=== PATIENT | male | born 2000 | race Caucasian/White ===

== ENCOUNTER 2021-04-03 15:15 | Emergency (ER) | payer MEDICAID ==
[2021-04-03 15:39] VITALS: BP 134/78; PULSE 72; O2SAT 98
--- NOTE | 2021-04-03 16:06 | ERPHSYRPT ---
- History of Present Illness Time Seen by Provider: 04/03/21 15:35 Source: patient Exam Limitations: no limitations Patient Subjective Stated Complaint: Pt has a "cyst" in his left arm just above and medial to his AC, it appeared approx 5 days ago and continues to get larger and it is causing pain Triage Nursing Assessment: Pt was brought to the ER by his girlfriend, alexander spaulding, rates pain as 6/10 in his left arm, "cyst" like mass inside his left medial arm, doesn't appear to be in any distress Physician History: Patient is a 20-year-old male presents to our emergency department for evaluation of a bulging mass on the medial aspect of his left upper arm. Symptoms started approximately 5 days ago. The mass is tender. No nidus of infection no fever. No numbness tingling or weakness of the upper extremity. Patient describes a dull ache that is well localized. No radiation. Patient otherwise asymptomatic. Pain rated 4 out of 10. Patient declined pain medication. Patient voices no other complaints at this time. Timing/Duration: day(s) (5 days ago.) Severity: moderate Modifying Factors: Improves With: medication Associated Symptoms: denies symptoms Allergies/Adverse Reactions: No Known Drug Allergies Allergy (Verified 04/03/21 15:38) Hx Tetanus, Diphtheria Vaccination/Date Given: Yes Hx Influenza Vaccination/Date Given: No Hx Pneumococcal Vaccination/Date Given: No Travel Risk - International Travel Have you traveled outside of the country in past 3 weeks: No - Coronavirus Screening Are you exhibiting any of the following symptoms?: No Close contact with a COVID-19 positive Pt in past 14-21 Days: No - Vaccine Status Have you recieved a Covid-19 vaccination: No - Review of Systems Constitutional: No Symptoms, No Fever, No Chills Eyes: No Symptoms Ears, Nose, & Throat: No Symptoms Respiratory: No Symptoms, No Cough, No Dyspnea Cardiac: No Symptoms, No Chest Pain, No Edema, No Syncope Abdominal/Gastrointestinal: No Symptoms, No Abdominal Pain, No Nausea, No Vomiting, No Diarrhea Genitourinary Symptoms: No Symptoms, No Dysuria Musculoskeletal: No Symptoms, No Back Pain, No Neck Pain Skin: No Symptoms, No Rash Neurological: No Symptoms, No Dizziness, No Focal Weakness, No Sensory Changes Psychological: No Symptoms Endocrine: No Symptoms Hematologic/Lymphatic: No Symptoms Immunological/Allergic: No Symptoms All Other Systems: Reviewed and Negative - Past Medical History Pertinent Past Medical History: No - Past Surgical History Past Surgical History: Yes - Social History Smoking Status: Current some day smoker Exposure to second hand smoke: Yes Drug Use: marijuana Patient Lives Alone: No - Nursing Vital Signs Nursing Vital Signs: Initial Vital Signs Temperature 99.3 F 04/03/21 15:31 Pulse Rate 72 04/03/21 15:31 Blood Pressure 134/78 04/03/21 15:31 O2 Sat by Pulse Oximetry 98 04/03/21 15:31 Pain Scale Pain Intensity 6 - Physical Exam General Appearance: no apparent distress, alert Eye Exam: PERRL/EOMI, eyes nml inspection Ears, Nose, Throat Exam: normal ENT inspection, TMs normal, pharynx normal, moist mucous membranes Neck Exam: normal inspection, non-tender, supple, full range of motion Respiratory Exam: normal breath sounds, lungs clear, No respiratory distress Cardiovascular Exam: regular rate/rhythm, normal heart sounds, normal peripheral pulses Gastrointestinal/Abdomen Exam: soft, normal bowel sounds, No tenderness, No mass Back Exam: normal inspection, normal range of motion, No CVA tenderness, No vertebral tenderness Extremity Exam: normal inspection, normal range of motion, pelvis stable, other (Mass medial aspect left upper extremity measures approximately 2 x 2 cm. It is tender to palpation. There is no lymphangitis. No circulatory compromise. Radial pulse palpable. Sensation to light touch intact.) Neurologic Exam: alert, oriented x 3, cooperative, normal mood/affect, nml cerebellar function, nml station & gait, sensation nml, No motor deficits Skin Exam: normal color, warm, dry, No rash Lymphatic Exam: adenopathy (Left upper extremity mass appears to be a lymph node.) SpO2 Interpretation: normal SpO2: 98 O2 Delivery: Room Air - Course Nursing assessment & vital signs reviewed: Yes - Radiology Ultrasound Exam Other Ultrasound: tele radiology report (1.8 x 1.6 x 1.5 cm well-circumscribed nodule with fatty echogenic hilum and color Doppler flow favoring enlarged lymph node. No other solid/cystic masses observed.) Ordered Tests: Active Orders 24 hr Category Date Time Status EXTREMITY NON VASCULAR [US] Stat Exams 04/03/21 15:55 Completed - Progress Progress: improved Progress Note: Dr. Salgado notified of findings. He advised scheduling appointment with general surgery. We will schedule an appointment with the [facility] for follow-up. Plan of care discussed with patient. He agrees to follow-up with general surgery as discussed. Will discharge patient at this time. [id number] pain medication as needed as needed. 04/03/21 16:38 04/03/21 16:40 Counseled pt/family regarding: diagnosis, need for follow-up, rad results - Departure Departure Disposition: Home Clinical Impression: Lymphadenopathy Condition: Stable Critical Care Time: No Referrals: KARLI MONTALVO [ACTIVE STAFF] - Additional Instructions: Discharge/Care Plan RADHA LANCE was seen on 04/03/21 in the Emergency Room. The patient was counseled regarding Diagnosis,Lab results, Imaging studies, need for follow up and when to return to the Emergency Room. Prescriptions given: Discharge Note I have spoken with the patient and/or caregivers. I have explained the patient's condition, diagnosis and treatment plan based on the information available to me at this time. I have answered the patient's and/or caregiver's questions and addressed any concerns. The patient and/or caregivers have as good understanding of the patient's diagnosis, condition and treatment plan as can be expected at this point. The vital signs have been stable. The patient's condition is stable and appropriate for discharge from the emergency department. The patient will pursue further outpatient evaluation with the primary care physician or other designated or consulting physician as outlined in the discharge instructions. The patient and/or caregivers are agreeable to this plan of care and follow-up instructions have been explained in detail. The patient and/or caregivers have received these instruction. The patient/and or caregivers are aware that any significant change in condition or worsening of symptoms should prompt an immediate return to this or the closest emergency department or call 911. Prescriptions: Clindamycin HCl 150 mg [Cleocin 150 mg Capsule] 2 cap PO QID 7 Days #56 capsule
--- NOTE | 2021-04-03 16:28 | XRAY ---
Indication: Left upper arm nodule. Two-dimensional targeted soft tissue ultrasound medial left upper arm demonstrates 1.8 x 1.6 x 1.5 cm well-circumscribed nodule with fatty echogenic hilum and color Doppler flow favoring enlarged lymph node. No other solid/cystic mass.
== END 2021-04-03 17:02 | disposition home or self-care (01) ==
LOC: ED 15:15
DX: R59.1 Generalized enlarged lymph nodes (principal)
CPT/HCPCS: 76881; 99283